=== PATIENT | male | born 1985 | race Caucasian/White ===

== ENCOUNTER 2020-08-17 14:42 | Emergency (ER) | payer MEDICAID ==
[~2020-08-17] VITALS: Ht 167.6 cm; Wt 74.8 kg
[2020-08-17 14:43] VITALS: BP 125/70
--- NOTE | 2020-08-17 14:47 | NUR ---
PT AMBULATED TO CHAIR C WITH [facility] [employer].
--- NOTE | 2020-08-17 14:52 | NUR ---
34 Y/O MALE BIB [facility] [employer] FOR PREBOOK. PT C/O BACK PAIN 10/10 DESCRIBES ACHING S/P TC X TODAY. DENIES LOC. P 123/MIN AT THIS TIME. DENIES [facility] NKA
[2020-08-17 15:38] VITALS: BP 125/70
--- NOTE | 2020-08-17 15:40 | NUR ---
PATIENT BIB [facility] [employer]. PATIENT EXAMINED BY TORI ORTA. PATIENT MEDICALLY CLEARED AND RELEASED IN CUSTODY IN STABLE CONDITION. ORIGINAL PRE-BOOK FORM GIVEN TO [employer].
--- NOTE | 2020-08-17 15:40 | NUR ---
Note renetta in EDM - 08/17/20 at 1540 by [email or web address] Patient discharged with v/s stable. Written and verbal after care instructions given and explained. Patient verbalized understanding. Ambulatory with steady gait. All questions addressed prior to discharge. Advised to follow up with PMD.
== END 2020-08-17 15:40 ==
LOC: MED 14:42
DX: S80.811A Abrasion, right lower leg, initial encounter (principal); F10.129 Alcohol abuse with intoxication, unspecified; Z02.89 Encounter for other administrative examinations; V98.8XXA Other specified transport accidents, initial encounter; Y93.89 Activity, other specified; Y92.89 Other specified places as the place of occurrence of the external cause; Y99.8 Other external cause status
CPT/HCPCS: 99283